=== PATIENT | female | born 1990 | race Hispanic/Latino ===

== ENCOUNTER 2021-05-09 14:20 | Observation (INO) | payer OTHER, SELFPAY ==
[2021-05-09] VITALS (14 sets, daily range): BP systolic 100–122; BP diastolic 51–78; PULSE 78–100; RESP 16–24; TEMP 36.4–36.6; O2SAT 95–99; BMI 27.2; BMI 37.6
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
[2021-05-09 18:52] LABS: Add Manual Diff / Slide Review NO; Basophils Absolute Auto 100 /uL (0-100); Basophils Percent Auto 0.5 % (0-2); Eosinophils Absolute Auto 300 /uL (0-450); Eosinophils Percent Auto 3.2 % (2-4); Hematocrit 42.2 % (36-46); Hemoglobin 14.3 g/dL (12.0-16.0); Lymphocytes Absolute Auto 3600 /uL (1100-4500); Lymphocytes Percent Auto 33.4 % (25-40); Mean Corpuscular HGB Conc 33.9 % (30-36); Mean Corpuscular Hemoglobin 29.3 PG (26-34); Mean Corpuscular Volume 86.3 fL (80-100); Monocytes Absolute Auto 800 /uL (0-900); Monocytes Percent Auto 7.2 % (3-14); Neutrophils Absolute Auto 6100 /uL (1500-7000); Neutrophils Percent Auto 55.7 % (50-75); Platelet Count 354 X10^3/uL (150-400); Red Blood Cell Count 4.89 X10^6/uL (4.0-5.2); Red Cell Distribution Width 14.7 % (11.6-14.8); White Blood Cell Count 10.9 X10^3/uL (4.5-11.0)
[2021-05-09 18:53] LABS: Appearance Urine UA CLOUDY; Bilirubin Urine UA NEGATIVE (NEGATIVE); Color Urine UA YELLOW; Glucose Urine UA NEGATIVE (Negative); Ketones Urine UA NEGATIVE (NEGATIVE); Leukocyte Esterase Urine UA TRACE (NEGATIVE); Nitrite Urine UA NEGATIVE (Negative); Occult Blood Urine UA TRACE-LYSED (Negative); Protein Urine UA NEGATIVE (Negative); Specific Gravity Urine UA 1.025 (1.000-1.035); Urobilinogen Urine UA 0.2 E.U./dL (0.2)
[2021-05-09 18:58] LABS: Alanine Aminotransferase 25 IU/L (<35); Albumin 4.2 g/dL (3.5-5.0); Albumin Globulin Ratio 1.3 (1.0-2.8); Alkaline Phosphatase 91 U/L (38-126); Aspartate Aminotransferase 30 IU/L (14-36); BUN Creatinine Ratio 23.1 (6-22); Bilirubin Total 0.3 mg/dL (0.2-1.3); Blood Urea Nitrogen 12 mg/dL (7-17); Calcium 9.7 mg/dL (8.4-10.2); Carbon Dioxide 31 mmol/L (22-32); Chloride 108 mmol/L (98-107); Estimated Glomerular Filt Rate > 60.0 mL/min (>60); Globulin 3.3 g/dL (1.7-4.1); Glucose 97 mg/dL (70-100); HEMOLYSIS 17 (0-50); Potassium 4.5 mmol/L (3.4-5.1); Sodium 143 mmol/L (137-145); Total Protein 7.5 g/dL (6.3-8.2)
[2021-05-09 19:21] LABS: Bacteria Urine Few (2-10); Culture Indicated Urine Specimen Cultured; Mucus Urine 1+ (Negative); RBC Urine 0-1/HPF (0-5/HPF); Squamous Epithelial Cell Urine 1-5 /HPF (0-5/HPF); Transitional Epi Cells Urine 0-1/HPF (0-5/HPF); WBC Urine 10-30/HPF (0-5/HPF)
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
[2021-05-09 19:39] LABS: COVID19 - ADMIT (NP swab/PCR) Negative (Negative)
[2021-05-09] MEDS: MORPHINE 2 MG/ML INJ 4 MG IV (20:02)
[2021-05-09] MEDS: ONDANSETRON 4 MG/2 ML INJ IV ×2 (20:03→23:33)
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
[2021-05-09] MEDS: HYDROMORPHONE 0.5 MG INJ IV (21:10)
[2021-05-09] MEDS: SODIUM CHLORIDE 0.9% 1,000 ML 100 ML IV (22:48)
--- NOTE | 2021-05-09 23:26 | PC.ADMIT ---
[address] Admission Note: The patient,Cinthia Martin,31 y/o, was given written information regarding hospital policies, unit procedures and contact persons. Patient's smoking status: Current some day smoker. Pt arrived from ED, A/O. Denies pain. Reports nausea from medication administered in ED. Oriented to room and call system. Purse with valuable locked in safe. Vital Signs - 8 hr 05/09/21 17:07 05/09/21 18:29 05/09/21 18:30 Temperature Pulse Rate 84 100 H 90 Respiratory Rate Blood Pressure 102/55 L Pulse Oximetry 98 99 99 05/09/21 18:36 05/09/21 18:45 05/09/21 19:00 Temperature Pulse Rate 91 H 85 90 Respiratory Rate 22 Blood Pressure 120/67 117/62 109/65 Pulse Oximetry 98 99 98 05/09/21 19:16 05/09/21 19:30 05/09/21 19:45 Temperature Pulse Rate 94 H 94 H 83 Respiratory Rate Blood Pressure 122/55 L 114/59 L 118/73 Pulse Oximetry 98 98 99 05/09/21 20:00 05/09/21 20:54 05/09/21 22:03 Temperature Pulse Rate 82 88 78 Respiratory Rate 24 18 Blood Pressure 109/64 107/54 L 100/51 L Pulse Oximetry 99 98 95 05/09/21 22:51 Temperature 97.9 F Pulse Rate 89 Respiratory Rate 16 Blood Pressure 105/65 Pulse Oximetry 98
[2021-05-10 03:20] VITALS: BP 99/56; PULSE 83; RESP 18; TEMP 37.1; O2SAT 98
--- NOTE | 2021-05-10 05:55 | PC.NURSE ---
Spoke with Dr. Marsh after patient admitted to AC unit, he stated that he would place orders in the morning.
[2021-05-10 06:00] VITALS: BP 103/55; PULSE 78; RESP 18; TEMP 36.8; O2SAT 97
[2021-05-10] MEDS: SODIUM CHLORIDE 0.9% 1,000 ML 100 ML IV (06:41)
[2021-05-10 06:52] LABS: Add Manual Diff / Slide Review NO; Basophils Absolute Auto 0 /uL (0-100); Basophils Percent Auto 0.5 % (0-2); Eosinophils Absolute Auto 200 /uL (0-450); Eosinophils Percent Auto 1.7 % (2-4); Hematocrit 38.7 % (36-46); Hemoglobin 12.9 g/dL (12.0-16.0); Lymphocytes Absolute Auto 3000 /uL (1100-4500); Lymphocytes Percent Auto 31.5 % (25-40); Mean Corpuscular HGB Conc 33.3 % (30-36); Mean Corpuscular Volume 87.1 fL (80-100); Monocytes Absolute Auto 600 /uL (0-900); Monocytes Percent Auto 6.6 % (3-14); Neutrophils Absolute Auto 5600 /uL (1500-7000); Neutrophils Percent Auto 59.7 % (50-75); Platelet Count 313 X10^3/uL (150-400); Red Blood Cell Count 4.44 X10^6/uL (4.0-5.2); Red Cell Distribution Width 14.7 % (11.6-14.8); White Blood Cell Count 9.4 X10^3/uL (4.5-11.0)
[2021-05-10 07:03] LABS: Alanine Aminotransferase 60 IU/L (<35); Albumin 3.7 g/dL (3.5-5.0); Albumin Globulin Ratio 1.2 (1.0-2.8); Alkaline Phosphatase 99 U/L (38-126); Amylase 51 U/L (30-110); Aspartate Aminotransferase 74 IU/L (14-36); BUN Creatinine Ratio 21.6 (6-22); Bilirubin Total 0.4 mg/dL (0.2-1.3); Blood Urea Nitrogen 11 mg/dL (7-17); Calcium 8.9 mg/dL (8.4-10.2); Carbon Dioxide 26 mmol/L (22-32); Chloride 112 mmol/L (98-107); Estimated Glomerular Filt Rate > 60.0 mL/min (>60); Glucose 103 mg/dL (70-100); HEMOLYSIS < 15 (0-50); Lipase 44 U/L (23-300); Potassium 3.9 mmol/L (3.4-5.1); Sodium 143 mmol/L (137-145); Total Protein 6.7 g/dL (6.3-8.2)
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
--- NOTE | 2021-05-10 12:20 | PC.NURSE ---
pt tolerated general diet. no n/v afterwards. pt voiding without difficulty. notified Dr. Jacobson. DC teaching and paper work done. all communications with patient was done with house superintendent. pt has a priority pass for [employer].
== END 2021-05-10 11:57 | disposition home or self-care (01) ==
LOC: ED 21:02 → AC 21:07
PROVIDERS: Admitting Provider Surgery; Emergency Provider Nurse Practitioner Critical Care Medicine; Visit Provider Surgery
DX: M54.2 Cervicalgia (principal); R10.30 Lower abdominal pain, unspecified; Z53.29 Procedure and treatment not carried out because of patient's decision for other reasons; V89.2XXA Person injured in unspecified motor-vehicle accident, traffic, initial encounter; Y92.410 Unspecified street and highway as the place of occurrence of the external cause; F17.210 Nicotine dependence, cigarettes, uncomplicated; Z20.822 Contact with and (suspected) exposure to COVID-19; I88.0 Nonspecific mesenteric lymphadenitis; R18.8 Other ascites; N83.292 Other ovarian cyst, left side
CPT/HCPCS: 36415; 71045; 74177; 80053; 81001; 81025; 82150; 83690; 85025; 86850; 86900; 86901; 87086; 87635; 96361; 96374; 96375; 96376; 99217; 99218; 99284; C9803; G0378; J1170; J2270; J2405; Q9967

== ENCOUNTER → 2022-07-02 15:44 | Outpatient (CLI) | payer SELFPAY ==
[2021-05-09 22:58] VITALS: BMI 37.6
== END ==
PROVIDERS: PCP Physician Assistant; Visit Provider Physician Assistant
DX: R10.2 Pelvic and perineal pain (principal)
CPT/HCPCS: 87491; 87591; 87661; 87798

== ENCOUNTER → 2024-01-01 08:54 | Outpatient (CLI) | payer SELFPAY ==
[2021-05-09 22:58] VITALS: BMI 37.6
== END ==
PROVIDERS: PCP Physician Assistant; Visit Provider Physician Assistant Medical
DX: R10.9 Unspecified abdominal pain (principal); R10.2 Pelvic and perineal pain
CPT/HCPCS: 87086

== ENCOUNTER → 2024-01-08 06:37 | Outpatient (CLI) | payer SELFPAY ==
[2021-05-09 22:58] VITALS: BMI 37.6
--- NOTE | 2024-01-08 06:41 | DI.US.S_ITS ---
PROCEDURE: US PELVIC COMPLETE INDICATIONS: PAIN X 1 MONTH; SPOTTING TECHNIQUE: Real-time scanning was performed of the pelvic organs, with image documentation. Additional endovaginal scanning was necessary due to incomplete visualization of the adnexal and endometrial structures by transabdominal scanning. COMPARISON: None. FINDINGS: Please note that this examination is limited due to body habitus. Uterus: Uterus is retroverted and normal in size at 8.7 x 5.8 cm. The myometrium is heterogenous; multiple uterine fibroids are present. The largest fibroid is present in a posterior intramural location within the uterine body and measures 2.4 x 1.6 x 2.2 cm.The endometrium measures 8.7 mm combined thickness. There is an intrauterine device located in the lower uterine segment. Ovaries: The right ovary is not identified. The left ovary is suboptimally visualized but measures 8.8 x 6.5 x 6.6 cm, with a calculated ovarian volume of 197 cc. Multiple simple appearing cysts are present in the ovary, the largest which measures 5.1 x 4.3 x 5.1 cm. Less than 12 follicles are present in the left ovary. No adnexal masses are seen. Other: There is a small amount of free fluid in the pelvis, likely physiologic. IMPRESSION: 1. Limited exam due to body habitus. 2. Multiple uterine fibroids and multi-cystic appearance of the left ovary. Risk stratification cannot be done due to the quality of the study. If further evaluation is necessary, an MRI of the pelvis with contrast would be recommended. 3. Intrauterine device in the lower uterine segment. We strive to produce accurate, complete, and clear reports of imaging services. To assist us in improving patient care, this report was composed using standard report templates and voice recognition software. Therefore, it may contain abnormal punctuation, insertions and/or omissions. Occasional wrong-word or sound-alike substitutions may occur. Though we review the report and make efforts to correct it, we do recommend that the report be read carefully in proper context to recognize any text inaccuracies. Dictated by: Oneal Marte M.D. on 01/08/2024 at 15:46 Approved by: Oneal Marte M.D. on 01/08/2024 at 15:53
--- NOTE | 2024-01-08 06:41 | DI.US.S_ITS ---
PROCEDURE: US ABDOMEN COMPLETE INDICATIONS: PAIN X 1 MONTH TECHNIQUE: Real-time scanning was performed of the abdominal and retroperitoneal organs, with image documentation. COMPARISON: None. FINDINGS: Please note that the examination is limited due to body habitus and overlying bowel gas. Liver: Liver is normal in size and homogeneous in echotexture. The parenchyma is hyperechoic. Gallbladder: Absent. Biliary ducts: Intrahepatic bile ducts are non-dilated. Extrahepatic bile duct caliber measures 6.3 mm. Normal is 6-7 mm or less in diameter, or 10 mm or less post-cholecystectomy. Pancreas: Not identified due to overlying bowel gas. Spleen: Spleen is normal in size and homogeneous in echotexture. Kidneys: Kidneys are normal in size and echotexture. Right kidney measures 11.3 cm long; left kidney measures 12.5 cm long. No hydronephrosis or nephrolithiasis. No solid masses. Aorta: The proximal and distal portions of the abdominal aorta was identified due to overlying bowel gas. Visualized aorta is normal in caliber at less than 3 cm. Iliacs: Proximal common iliac arteries are normal in caliber at less than 2.5 cm. IVC: Intrahepatic inferior vena cava is patent. Miscellaneous: No free abdominal fluid. IMPRESSION: Limited exam due to overlying bowel gas. Hepatic steatosis versus underlying hepatocellular disease. Dictated by: Oneal Marte M.D. on 01/08/2024 at 15:42 Approved by: Oneal Marte M.D. on 01/08/2024 at 15:46
[2024-01-08 08:49] LABS: Add Manual Diff / Slide Review NO; Basophils Absolute Auto 100 /uL (0-100); Basophils Percent Auto 0.4 % (0-2); Eosinophils Absolute Auto 1400 /uL (0-450); Eosinophils Percent Auto 11.4 % (2-4); Hematocrit 34.6 % (36-46); Hemoglobin 11.2 g/dL (12.0-16.0); Lymphocytes Absolute Auto 2700 /uL (1100-4500); Lymphocytes Percent Auto 22.3 % (25-40); Mean Corpuscular HGB Conc 32.4 % (30-36); Mean Corpuscular Hemoglobin 26.1 PG (26-34); Mean Corpuscular Volume 80.7 fL (80-100); Monocytes Absolute Auto 700 /uL (0-900); Monocytes Percent Auto 5.9 % (3-14); Neutrophils Absolute Auto 7200 /uL (1500-7000); Platelet Count 521 X10^3/uL (150-400); Red Blood Cell Count 4.29 X10^6/uL (4.0-5.2); Red Cell Distribution Width 16.4 % (11.6-14.8)
[2024-01-08 09:26] LABS: Alanine Aminotransferase 28 IU/L (<35); Albumin Globulin Ratio 1.3 (1.0-2.8); Alkaline Phosphatase 147 U/L (38-126); Aspartate Aminotransferase 27 IU/L (14-36); BUN Creatinine Ratio 24.5 (6-22); Bilirubin Total 0.4 mg/dL (0.2-1.3); Blood Urea Nitrogen 12 mg/dL (7-17); Calcium 9.6 mg/dL (8.4-10.2); Carbon Dioxide 23 mmol/L (22-32); Chloride 108 mmol/L (98-107); Estimated Glomerular Filt Rate > 60 mL/min (>60); Globulin 3.1 g/dL (1.7-4.1); Glucose 123 mg/dL (70-100); HEMOLYSIS < 15 (0-50); Potassium 4.3 mmol/L (3.4-5.1); Sodium 142 mmol/L (137-145); Total Protein 7.1 g/dL (6.3-8.2)
[2024-01-08 09:49] LABS: Appearance Urine UA CLOUDY; Bilirubin Urine UA NEGATIVE (NEGATIVE); Color Urine UA YELLOW; Glucose Urine UA NEGATIVE (Negative); Ketones Urine UA NEGATIVE (NEGATIVE); Leukocyte Esterase Urine UA NEGATIVE (NEGATIVE); Nitrite Urine UA NEGATIVE (Negative); Occult Blood Urine UA 3+ (Negative); Protein Urine UA TRACE (Negative); Urobilinogen Urine UA 0.2 E.U./dL (0.2); pH Urine UA 5.5 (4.5-8.0)
[2024-01-08 09:59] LABS: Urine Volume 10mL (spun)
[2024-01-08 10:00] LABS: Bacteria Urine None Seen; Culture Indicated Urine Cult Not Indicated; RBC Urine 30-100/HPF (0-5/HPF); Squamous Epithelial Cell Urine 1-5 /HPF (0-5/HPF); WBC Urine 0-1/HPF (0-5/HPF)
[2024-01-08 11:15] LABS: Urine N gonorrhoeae NOT DETECTED
[2024-01-08 11:21] LABS: Urine Chlamydia NOT DETECTED
== END ==
PROVIDERS: PCP Physician Assistant; Referring Provider Physician Assistant Medical; Visit Provider Physician Assistant Medical
DX: R10.2 Pelvic and perineal pain (principal); R10.9 Unspecified abdominal pain; R31.9 Hematuria, unspecified; D25.1 Intramural leiomyoma of uterus; R14.3 Flatulence
CPT/HCPCS: 36415; 76700; 76830; 76856; 80053; 81001; 85025; 87491; 87591; 93976

== ENCOUNTER → 2024-01-16 11:19 | Outpatient (CLI) | payer SELFPAY ==
[2021-05-09 22:58] VITALS: BMI 37.6
[2024-01-16 20:16] LABS: Hematocrit 38.2 % (36-46); Hemoglobin 12.6 g/dL (12.0-16.0); Mean Corpuscular Hemoglobin 26.6 PG (26-34); Mean Corpuscular Volume 80.7 fL (80-100); Platelet Count 479 X10^3/uL (150-400); Red Blood Cell Count 4.74 X10^6/uL (4.0-5.2); Red Cell Distribution Width 16.5 % (11.6-14.8); White Blood Cell Count 10.9 X10^3/uL (4.5-11.0)
[2024-01-16 20:20] LABS: Alanine Aminotransferase 21 IU/L (<35); Albumin 3.9 g/dL (3.5-5.0); Albumin Globulin Ratio 1.2 (1.0-2.8); Alkaline Phosphatase 125 U/L (38-126); Aspartate Aminotransferase 25 IU/L (14-36); BUN Creatinine Ratio 22.7 (6-22); Bilirubin Total 0.4 mg/dL (0.2-1.3); Blood Urea Nitrogen 10 mg/dL (7-17); Calcium 9.8 mg/dL (8.4-10.2); Carbon Dioxide 23 mmol/L (22-32); Chloride 109 mmol/L (98-107); Estimated Glomerular Filt Rate > 60 mL/min (>60); Globulin 3.3 g/dL (1.7-4.1); Glucose 129 mg/dL (70-100); HEMOLYSIS < 15 (0-50); Potassium 4.3 mmol/L (3.4-5.1); Sodium 142 mmol/L (137-145); Total Protein 7.2 g/dL (6.3-8.2)
[2024-01-16 20:22] LABS: Add Manual Diff / Slide Review YES
[2024-01-16 20:29] LABS: Hemoglobin A1C% w Est Avg Glu 6.1 % (4.0-6.0)
[2024-01-16 22:03] LABS: Neutrophils Absolute Manual 4033 /uL (3000-5900); Total Cells Counted 100
[2024-01-16 22:04] LABS: RBC Morphology Normal Morphology
== END ==
PROVIDERS: PCP Physician Assistant; Visit Provider Physician Assistant Medical
DX: R10.9 Unspecified abdominal pain (principal); R10.2 Pelvic and perineal pain; R73.9 Hyperglycemia, unspecified
CPT/HCPCS: 80053; 83036; 85007; 85025

== ENCOUNTER → 2024-01-29 12:52 | Outpatient (CLI) | payer SELFPAY ==
[2021-05-09 22:58] VITALS: BMI 37.6
== END ==
PROVIDERS: PCP Physician Assistant; Visit Provider Nurse Practitioner Adult Health
DX: G89.29 Other chronic pain (principal); R10.9 Unspecified abdominal pain; R10.2 Pelvic and perineal pain; N93.9 Abnormal uterine and vaginal bleeding, unspecified; T83.32XD Displacement of intrauterine contraceptive device, subsequent encounter
CPT/HCPCS: 87491; 87591; 87661